=== PATIENT | female | born 1955 | race Caucasian/White ===

== ENCOUNTER 2019-04-13 11:06 | Outpatient (CLI) | payer MEDICARE, MEDICAID, SELFPAY ==
--- NOTE | 2019-04-13 11:14 | ECG_ITS ---
Measurements Intervals [place] Rate: 80 P: 77 MT: 191 QRS: 42 QRSD: 94 T: 60 QT: 350 QTc: 404 Interpretive Statements SINUS RHYTHM BASELINE ARTIFACT- I, III, AVR, AVL, AVF, V2 BORDERLINE ECG Electronically Signed On 04-13-2019 13:50:09 GARMENT SEWING MACHINE OPERATOR by Tanner Desai D.O.
== END 2019-04-13 11:07 | disposition home or self-care (01) ==
LOC: ANHSURGERY 11:14
PROVIDERS: PCP Internal Medicine; Visit Provider Orthopaedic Surgery
DX: F17.200 Nicotine dependence, unspecified, uncomplicated (principal); I10 Essential (primary) hypertension; R94.31 Abnormal electrocardiogram [ECG] [EKG]
CPT/HCPCS: 93005

== ENCOUNTER 2019-04-21 00:46 | Day surgery (SDC) | payer MEDICARE, MEDICAID, SELFPAY ==
[2019-04-06 11:07] VITALS: BMI 29.5
--- NOTE | 2019-04-20 12:17 | PM.IMHP ---
H&P: HPI History of Present Illness Chief complaint: Right rotator cuff tear Narrative: Chief Complaint: see Reason for Visit (Right Shoulder Pain) Duration: months Severity: 0-10 pain scale (6) Associated signs and symptoms: symptoms reported: Exacerbating/relieving factors: relieving factors: (Rest, Ice,Heat, Pain medication, ) Review of Systems Review of Systems: All systems reviewed & are unremarkable except as noted in HPI and below Constitutional: Constitutional: Denies headache(s) and Denies weakness Eyes: Eyes: Denies blurry vision, Denies change in vision and Denies loss of vision ENT: Denies dizziness, Denies dry mouth, Denies headache(s) and Denies nasal congestion Cardiovascular: Cardiovascular: Denies chest pain, Denies syncope, Denies leg edema and Denies dyspnea on exertion Respiratory: Respiratory: Denies cough and Denies dyspnea on exertion Gastrointestinal: Gastrointestinal: Denies abdominal pain, Denies constipation and Denies diarrhea Genitourinary: Genitourinary: Denies urinary frequency Musculoskeletal: Musculoskeletal: Reports as per HPI and Denies numbness Integumentary/Breasts: Skin/Breast: Reports system reviewed and no additional complaints, except as docu Neurologic: Denies dizziness, Denies syncope, Denies headache(s), Denies loss of vision, Denies numbness and Denies weakness Psychiatric: Psychiatric: Reports no additional psychiatric complaints Endocrine: Endocrine: Reports no additional endocrine complaints Hematologic/Lymphatic: Hematologic/Lymphatic: Reports no additional hematologic/lymphatic complaints [facility] Past Medical History Medical History Anxiety Arthritis Broken ankle Broken jaw COPD (chronic obstructive pulmonary disease) Depression Generalized osteoarthritis of multiple sites GERD (gastroesophageal reflux disease) Hypertension Seronegative rheumatoid arthritis of multiple sites (~2016) Stroke Thyroid disease Surgical History Surgical History H/O repair of rotator cuff H/O: hysterectomy History of bladder surgery History of cholecystectomy History of gastric stapling History of joint replacement Family History Family History Father Bone cancer Hypertension Arthritis Mother Bone cancer Depression Hypertension Grandparent Acute myocardial infarction Sibling Dementia Diabetes mellitus Chronic mental illness Other Nerve disorder Social History Social History Smoking status: Heavy tobacco smoker Alcohol intake: never Gender identity (if verbalized by the patient): Female Meds Home Medications and Allergies Home Medications Medication Instructions Recorded Confirmed Type aspirin 81 mg tablet,delayed 81 mg PO DAILY 02/04/19 04/06/19 History release calcium carbonate-vitamin D3 600 1 cap PO DAILY 02/04/19 04/06/19 History mg calcium-200 unit capsule cyclobenzaprine 10 mg tablet 10 mg PO TID 02/04/19 04/06/19 History duloxetine 60 mg capsule,delayed 60 mg PO BID 02/04/19 04/06/19 History release gabapentin 600 mg tablet 600 mg PO TID 02/04/19 04/06/19 History levothyroxine 50 mcg tablet 50 mcg PO DAILY 02/04/19 04/06/19 History pantoprazole 40 mg tablet,delayed 40 mg PO QAM 02/04/19 04/06/19 History release ramipril 10 mg capsule 10 mg PO DAILY cap 02/04/19 04/06/19 History alendronate 70 mg tablet 70 mg PO WEEKLY 02/11/19 04/06/19 History atorvastatin 40 mg tablet 40 mg PO DAILY 02/11/19 04/06/19 History celecoxib 200 mg capsule 200 mg PO DAILY 02/11/19 04/06/19 History folic acid 1 mg tablet 1 mg PO DAILY #30 tablet 02/11/19 04/06/19 Rx hydrocodone 7.5 mg-acetaminophen 1 tablet PO Q8H PRN 02/11/19 04/06/19 History 325 mg tablet hydroxychloroquine 200 mg tablet 400 mg PO DAILY #60 tablet 02/23/19 0
[2019-04-21] VITALS (8 sets, daily range): BP systolic 91–132; BP diastolic 50–64; PULSE 81–99; RESP 12–20; TEMP 36.8; O2SAT 93–100
--- NOTE | 2019-04-21 11:58 | WPDANESEPP ---
Anes - Eval Pre Procedure Procedure: Operation Date: 04/21/19 13:00 Proposed Procedures p Right Rotator Cuff Repair with Distal Clavicle Excision - Chicho Tsang MD Date/Time: 04/21/19 11:58 Pre Op Diagnosis: Right rotator cuff tear Patient Data Age: 63 Gender: F Height: 5 ft 1 in Weight: 71 kg Allergies Allergy/AdvReac Type Severity Reaction Status Date / Time Penicillins Allergy Mild Swelling Verified 04/06/19 11:24 Home Medications Medication Instructions Recorded Confirmed Type aspirin 81 mg tablet,delayed 81 mg PO DAILY 02/04/19 04/06/19 History release calcium carbonate-vitamin D3 600 1 cap PO DAILY 02/04/19 04/06/19 History mg calcium-200 unit capsule cyclobenzaprine 10 mg tablet 10 mg PO TID 02/04/19 04/06/19 History duloxetine 60 mg capsule,delayed 60 mg PO BID 02/04/19 04/06/19 History release gabapentin 600 mg tablet 600 mg PO TID 02/04/19 04/06/19 History levothyroxine 50 mcg tablet 50 mcg PO DAILY 02/04/19 04/06/19 History pantoprazole 40 mg tablet,delayed 40 mg PO QAM 02/04/19 04/06/19 History release ramipril 10 mg capsule 10 mg PO DAILY cap 02/04/19 04/06/19 History alendronate 70 mg tablet 70 mg PO WEEKLY 02/11/19 04/06/19 History atorvastatin 40 mg tablet 40 mg PO DAILY 02/11/19 04/06/19 History celecoxib 200 mg capsule 200 mg PO DAILY 02/11/19 04/06/19 History folic acid 1 mg tablet 1 mg PO DAILY #30 tablet 02/11/19 04/06/19 Rx hydrocodone 7.5 mg-acetaminophen 1 tablet PO Q8H PRN 02/11/19 04/06/19 History 325 mg tablet hydroxychloroquine 200 mg tablet 400 mg PO DAILY #60 tablet 02/23/19 04/06/19 Rx methotrexate sodium 2.5 mg PO WEEKLY 04/06/19 04/06/19 History ECG: SR rate 80 04/13/19 Patient hx anesthesia problems: none Family hx anesthesia problems: none PMFSH Past Medical History Medical History Anxiety Arthritis Broken ankle Broken jaw COPD (chronic obstructive pulmonary disease) Depression Generalized osteoarthritis of multiple sites GERD (gastroesophageal reflux disease) Hypertension Seronegative rheumatoid arthritis of multiple sites (~2016) Stroke Thyroid disease Surgical History Surgical History H/O repair of rotator cuff H/O: hysterectomy History of bladder surgery History of cholecystectomy History of gastric stapling History of joint replacement Family History Family History Father Bone cancer Hypertension Arthritis Mother Bone cancer Depression Hypertension Grandparent Acute myocardial infarction Sibling Dementia Diabetes mellitus Chronic mental illness Other Nerve disorder Social History Social History (Updated 04/21/19 @ 12:00 by Charmaine Cameron CRNA) Smoking status: Heavy tobacco smoker Tobacco type: cigarettes Alcohol intake: never Substance use: current Substance use type: opiates Gender identity (if verbalized by the patient): Female Exam Day of Procedure 04/21/19 11:58 Patient weight: obese
[2019-04-21] MEDS: LACTATED RINGERS 1,000 ML 30 ML IV CONT ×2 (12:00→15:30)
--- NOTE | 2019-04-21 12:15 | P.PNAN_ITS ---
Anes - Eval Final PreProcedure Day of Procedure 04/21/19 12:15 Patient weight: obese Heart: regular rate and rhythm Lungs: clear to auscultation Airway: Mallampati scale class II Neurological: alert and oriented Last oral intake: >/= 8 hours ASA classification: IV Emergent: no Anesthetic plan: proceed Anesthesia type and monitoring: general ETT and standard monitoring Informed Consent: The patient's anesthetic plan and its attendant risks and jens efits were discussed with the patient/family/POA. Questions were solicited and answers provided to the satisfaction of the patient/family/POA.
--- NOTE | 2019-04-21 12:35 | WPDHPUPDATE1 ---
History and Physical Update Update Date/Time: 04/21/19 12:35 History and Physical has been reviewed, including an updated exam of the patient. There are NO changes in the patient's condition. Risks, benefits, and alternatives have been discussed and questions answered. Patient agrees to proceed with procedure.
[2019-04-21] MEDS: ceFAZolin 2 GM/D5W 50 ML 2 GM/50 ML BAG IVPB (13:12)
--- NOTE | 2019-04-21 15:17 | PM.OP ---
Procedure Note - Brief Procedure Note - Brief Date of procedure: 04/21/19 Pre-op diagnosis: Right rotator cuff tear Post-op diagnosis: same Procedure performed: R ROT CUFF REPAIR WITH DCE Anesthesia: GETA Surgeon: Chicho Tsang MD Estimated blood loss (mL): 20 Complications: No immediate complications Condition: stable Disposition: PACU
--- NOTE | 2019-04-21 18:04 | SUR.PHASEII ---
1757: Patient and sister waiting for ride to come. Patient is all dressed and ready to go home. She is unhooked from the monitors and is medically stable at this time. RN will continue to sit with patient until ride arrives.
--- NOTE | 2019-04-22 06:11 | OP_ITS ---
DATE OF PROCEDURE: 04/21/2019 PREOPERATIVE DIAGNOSES: Right rotator cuff tear and acromioclavicular joint degenerative joint disease. POSTOPERATIVE DIAGNOSES: Right rotator cuff tear and acromioclavicular joint degenerative joint disease. PROCEDURE: Right rotator cuff repair with distal clavicle excision. ANESTHESIA: General. COMPLICATIONS: None. INDICATIONS: This is a 63-year-old female who has a large rotator cuff tear to the right shoulder, and she was indicated for rotator cuff repair and distal clavicle excision due to the AC joint DJD as well. DESCRIPTION OF PROCEDURE: The patient was taken to the operating room in stable condition and placed in supine position. General anesthesia was induced and the right upper extremity was prepped after she was placed in beach chair position. The right upper extremity was prepped from the fingers to the axillary and cervical region. Next, an incision was made over the anterolateral acromion down to the subcutaneous tissues until the fascia was identified. The AC joint was then identified, was incised and a distal clavicle excision was performed removing approximately 1 cm bone from the distal clavicle. The wound was irrigated and the capsule was approximated with #0 Vicryl. Next, a mini open incision made through the deltoid muscle exposing the subacromial space. Clear fluid was coming from the subacromial space. After retraction, it was noted there was a large tear of the rotator cuff, approximately 40% of the rotator cuff was missing from the most posterior aspect of the humeral head. So, then she had a lot of adhesions, a lot of bursal tissue, so that was removed. Adhesions were also removed as we were able to mobilize the cuff a little bit more until we had the majority of the humeral head covered with cuff. Once that was performed, then two Arthrex suture anchors were placed in the greater tuberosity which had already been debrided with bleeding down to good bone and then the rotator cuff was repaired back to the greater tuberosity. The repair was using a Aly-Umer type technique and the repair was secure. Once that was performed, then the wound was irrigated thoroughly and then there was not a lot of impingement on the repair from the acromion, so it was elected not to do a subacromial decompression rather than just a debridement was performed underneath the acromion of any osteophytes. The wound was irrigated thoroughly once again and the deltoid muscle was repaired with a #2 FiberWire and #0 Vicryl and then the subcutaneous was approximated with 2-0 Vicryl and then the skin was approximated with a subcuticular 3-0 Quill, and Dermabond was placed. Sterile dressing was applied. The patient then was extubated and sent to recovery. Terri I MT: Miriam
== END 2019-04-21 18:20 | disposition home or self-care (01) ==
PROVIDERS: PCP Internal Medicine; Visit Provider Orthopaedic Surgery
PROC: (CPT 23420; principal; 2019-04-21 13:00)
DX: M75.101 Unspecified rotator cuff tear or rupture of right shoulder, not specified as traumatic (principal); M19.011 Primary osteoarthritis, right shoulder; I10 Essential (primary) hypertension; J44.9 Chronic obstructive pulmonary disease, unspecified; M06.9 Rheumatoid arthritis, unspecified; F41.8 Other specified anxiety disorders; K21.9 Gastro-esophageal reflux disease without esophagitis; E07.9 Disorder of thyroid, unspecified; Z79.82 Long term (current) use of aspirin; Z98.84 Bariatric surgery status; F17.210 Nicotine dependence, cigarettes, uncomplicated; E66.9 Obesity, unspecified; Z68.30 Body mass index [BMI] 30.0-30.9, adult
CPT/HCPCS: 23412; 23120; A9270; C1713; J0330; J0360; J0690; J1100; J1170; J2250; J2370; J2405; J2704; J3010; J7120